=== PATIENT | female | born 1980 | race Asian ===

== ENCOUNTER 2016-08-24 11:27 | Inpatient (IN) | payer SELFPAY ==
[~2016-08-24] VITALS: Ht 168 cm; Wt 80.3 kg
[2016-08-24 11:56] VITALS: BP_SYST 101
[2016-08-24] MEDS ORDERED: LR 1,000 ML IV ONE (12:15)
[2016-08-24 12:38] LABS: BILIRUBIN,URINE 1+ (NEGATIVE); BLOOD, URINE 3+ (NEGATIVE); GLUCOSE,URINE NEGATIVE (NEGATIVE); KETONES,URINE TRACE (NEGATIVE); LEUKOCYTE ESTERASE ,URINE 1+ (NEGATIVE); NITRITE, URINE NEGATIVE (NEGATIVE); PH,URINE 6.5 (5.0-8.0); PROTEIN URINE 1+ (NEGATIVE)
[2016-08-24 12:43] LABS: BASOPHILS % (AUTO) 0.4 % (0.0-2.0); EOSINOPHILS % (AUTO) 0.1 % (0.0-4.0); HEMATOCRIT 34.7 % (36-48); HEMOGLOBIN 11.7 g/dL (12.0-16.0); LYMPHOCYTES # (AUTO) 1.1 K/uL (1.0-5.5); MEAN CORPUSCULAR HEMOGLOBIN 30 pg (27-31); MEAN CORPUSCULAR HGB CONC 34 % (32-36); MEAN CORPUSCULAR VOLUME 89 fL (79.0-98.0); MONOCYTES # (AUTO) 0.3 K/uL (0.0-1.0); MONOCYTES % (AUTO) 3.4 % (1.7-9.3); NEUTROPHILS # (AUTO) 7.4 K/uL (1.8-7.7); NEUTROPHILS % (AUTO) 83.1 % (40.0-70.0); PLATELET COUNT (AUTO) 137 K/uL (130-430); RED BLOOD CELL COUNT(AUTO) 3.91 MIL/uL (4.2-6.2); RED CELL DISTRIBUTION WIDTH 22.1 % (9.0-15.0); WHITE BLOOD COUNT (AUTO) 8.8 K/uL (4.8-10.8)
[2016-08-24 12:48] LABS: CLARITY/URINE CLOUDY (CLEAR); COLOR,URINE ORANGE (YELLOW)
[2016-08-24 12:52] LABS: BACTERIA,URINE MODERATE /HPF (None Seen); MUCUS,URINE 1+ /LPF (None Seen); RBC,URINE 20-50 /HPF (0-3)
[2016-08-24] MEDS ORDERED: CEFAZOLIN 2 GM IVPB PREMIX 50 ML IV ONE ×2 (13:00→14:10)
[2016-08-24] MEDS ORDERED: TERBUTALINE SULFATE 1 MG/ML VIAL ONE (13:23)
[2016-08-24] MEDS ORDERED: TERBUTALINE SULFATE 1 MG/ML VIAL SUBCUT ONE (13:45)
[2016-08-24] MEDS ORDERED: LR 500 ML IV ONE (14:09)
[2016-08-24] MEDS ORDERED: LR 1,000 ML IV.SOLN IV ONE (14:10)
[2016-08-24] MEDS ORDERED: METHYLERGONOVINE MALEATE 0.2 MG/ML AMP ONE (14:10)
[2016-08-24] MEDS ORDERED: KETOROLAC TROMETHAMINE 30 MG VIAL ONE ×2 (14:10→22:49)
[2016-08-24] MEDS ORDERED: OXYTOCIN 10 UNIT/ML VIAL ONE (14:10)
[2016-08-24] MEDS ORDERED: fentaNYL CITRATE/PF 100 MCG/2 ML AMP IVP ONE (14:11)
[2016-08-24] MEDS ORDERED: OXYTOCIN/NORMAL SALINE 1,000 ML IV ONE (14:17)
[2016-08-24 14:30] VITALS: BP_SYST 97
[2016-08-24] MEDS ORDERED: ANUSOL 1 EA SUPP.RECT (PREPARATION H) RC PRN (14:30)
[2016-08-24] MEDS ORDERED: OXYCODONE/ACETAMINOPHEN 5-325 TABLET PO PRN (14:30)
[2016-08-24] MEDS ORDERED: HYDROcodone/ACETAMIN 5-325 MG TAB (NORCO/ VICODIN) PO PRN (14:30)
[2016-08-24] MEDS ORDERED: MEASLES,MUMPS&RUBELLA VACC/PF 12500 UNIT/0.5 ML VIAL SUBQ PRN (14:30)
[2016-08-24] MEDS ORDERED: LANOLIN 7 GM OINT. TP PRN (14:30)
[2016-08-24] MEDS ORDERED: DOCUSATE SODIUM 100 MG CAPSULE PO PRN (14:30)
[2016-08-24] MEDS: CEFAZOLIN 1 GM IVPB PREMIX 50 ML IV SCH (20:03)
[2016-08-24] MEDS ORDERED: TEMAZEPAM 15 MG CAPSULE PO PRN (21:00)
[2016-08-24] MEDS ORDERED: KETOROLAC TROMETHAMINE 30 MG VIAL IVP ONE (22:45)
[2016-08-24] MEDS ORDERED: KETOROLAC TROMETHAMINE 15 MG VIAL IVP PRN (23:00)
[2016-08-25] MEDS: CEFAZOLIN 1 GM IVPB PREMIX 50 ML IV SCH ×2 (03:01→09:04)
[2016-08-25 06:19] LABS: BASOPHILS % (AUTO) 0.2 % (0.0-2.0); EOSINOPHILS % (AUTO) 0.1 % (0.0-4.0); HEMATOCRIT 27.7 % (36-48); HEMOGLOBIN 9.2 g/dL (12.0-16.0); LYMPHOCYTES # (AUTO) 0.7 K/uL (1.0-5.5); LYMPHOCYTES % (AUTO) 7.4 % (20.5-51.5); MEAN CORPUSCULAR HEMOGLOBIN 30 pg (27-31); MEAN CORPUSCULAR HGB CONC 33 % (32-36); MEAN CORPUSCULAR VOLUME 89 fL (79.0-98.0); MONOCYTES # (AUTO) 0.4 K/uL (0.0-1.0); MONOCYTES % (AUTO) 3.7 % (1.7-9.3); NEUTROPHILS # (AUTO) 8.9 K/uL (1.8-7.7); NEUTROPHILS % (AUTO) 88.6 % (40.0-70.0); PLATELET COUNT (AUTO) 105 K/uL (130-430); RED BLOOD CELL COUNT(AUTO) 3.11 MIL/uL (4.2-6.2); RED CELL DISTRIBUTION WIDTH 22.3 % (9.0-15.0)
[2016-08-25] MEDS: OXYCODONE/ACETAMINOPHEN 5-325 TABLET PO PRN (09:53)
[2016-08-25] MEDS: SIMETHICONE 80 MG TAB.CHEW PO PRN ×2 (09:53→17:56)
[2016-08-25] MEDS: IBUPROFEN 600 MG TABLET PO SCH ×2 (11:57→17:56)
[2016-08-26] MEDS: IBUPROFEN 600 MG TABLET PO SCH ×5 (00:01→18:14)
[2016-08-27] MEDS: OXYCODONE/ACETAMINOPHEN 5-325 TABLET PO PRN (05:29)
[2016-08-27] MEDS: IBUPROFEN 600 MG TABLET PO SCH ×3 (05:50→12:48)
== END 2016-08-27 16:35 | disposition home or self-care (01) | DRG 765 ==
LOC: SPU 11:27
PROVIDERS: ADMIT Obstetrics & Gynecology; ATTEND Obstetrics & Gynecology
PROC: 0UB70ZZ Excision of Bilateral Fallopian Tubes, Open Approach (ICD-10-PCS; 2016-08-24)
PROC: 10D00Z1 Extraction of Products of Conception, Low, Open Approach (ICD-10-PCS; principal; 2016-08-24 14:00)
DX: O34.211 Maternal care for low transverse scar from previous cesarean delivery (principal); O98.82 Other maternal infectious and parasitic diseases complicating childbirth; O98.42 Viral hepatitis complicating childbirth; B19.10 Unspecified viral hepatitis B without hepatic coma; O77.0 Labor and delivery complicated by meconium in amniotic fluid; D25.9 Leiomyoma of uterus, unspecified; O34.13 Maternal care for benign tumor of corpus uteri, third trimester; Z37.0 Single live birth; Z30.2 Encounter for sterilization; Z3A.38 38 weeks gestation of pregnancy; O09.523 Supervision of elderly multigravida, third trimester
CPT/HCPCS: 36415; 81000-TC; 85025; 86592; 86886; 86900; 86901; 88302; 94760; J0690; J1885; J2210; J2590; J3010; J3105; J7120